=== PATIENT | female | born 1960 | race Caucasian/White ===

== ENCOUNTER → 2016-10-25 | Outpatient (CLI) | payer BC ==
[~2016-10-25] MED LIST: ASPIRIN EC81 MG PO; CELEBREX200 MG PO; CENTRUM SILVER1 TAB PO; COREG6.25 MG PO; CPAP INH; CYMBALTA30 MG PO; DRISDOL 5050000 UNIT PO; FISH OIL 1,0001 EACH PO; LEVOTHROID (S125 MCG PO; SINGULAIR10 MG PO; VITAMIN D1000 UNIT PO; ZOCOR20 MG PO
--- NOTE | ~2016-10-25 | ESTC ---
Cardiac Perfusion Imaging Demographics Patient Name ROSA Alegre Gender Female Patient Number [id number] Race Visit Number [id number] Ethnicity or Corporate ID Room Number Accession Number [id number] Height 66 inches Date of 1960 Weight 245 pounds A Interpreting Jose Miguel Mancilla Date of study 10/25/2016 Physician Supervising /WADEP Thai DOLL Technologist Wanda Diop MD Ordering Physician Thai Foster A hazardous waste technician Stress ECG Reading Thai Schaffer Nurse Ghada Hernandez Physician A RN The procedure was explained in detail to the patient. Risks, complications and alternative treatments were reviewed. Written consent was obtained. Medications Reviewed with Patient prior to Procedure. Procedure Procedure Type: Nuclear Stress Test:Exercise, Cardiolite Stress Test Procedure Start time: 10/25/2016 09:42 Indications: Shortness of breath and Arm pain. Risk Factors The patient risk factors include:obesity, former tobacco use, treated hypercholesterolemia, treated hypertension and dyslipidemia. Conclusions Impression ECG portion of exercise stress test is negative for inducible ischemia. Myocardial perfusion imaging is moderately abnormal. The images reveal a reversible defect in the mid to distal anterior wall and apical lateral consistent with ischemia in the territory of the left anterior descending artery. Overall left ventricular systolic function was normal. Calculated LVEF is 74% with hypokinetic mid to distal anterior wall. TID ratio is 1.21. This is a intermediate risk stress test. Stress Protocols Resting ECG Normal sinus rhythm. Pre-stress physical exam: Patient assessed by Dr Andre prior to testing. Stress Protocol:Exercise Peak HR:139 bpm Predicted HR: 163 bpm % of predicted HR: 85 ECG Findings No ECG changes suggestive of ischemia. Arrhythmias No rhythm abnormality. Symptoms Shortness of breath. Stress Interpretation Appropriate hemodynamic response to exercise. No significant ST-T wave changes with exercise. EKG portion is negative for ischemia by diagnostic criteria. The Hussein Treadmill score was 7 .This corresponds to a low risk stress test. Imaging Results Applied corrections - Motion correction applied High risk findings Summed scores - LV dilatation (TID) : 1.21 - Summed stress score: 13 - Summed rest score: 11 - Summed difference score: 2 Stress ejection Ejection fraction:74 % EDV :108 ml ESV :28 ml Stroke volume :80 ml LV mass :139 gr Imaging Protocols Rest Stress Isotope:Tc99m Sestamibi IV Isotope: Tc99m Sestamibi IV Isotope dose:15.6 mCi Isotope dose:46.6 mCi Date:10/25/2016 08:03 Date:10/25/2016 10:03 Technique: SPECT Technique: Gated Supine SPECT Supine Scan Time:45-60 minutes post Scan Time:45-60 minutes post injection injection Medical History Admission Data Admission date: 10/25/2016 Admission Time: 07:30 Hospital Status: Outpatient. Signatures dtt: BALDOMERO CHILDS dtd: 10/25/16 0942 Physician Self Edit
== END | disposition disaster alternative care site (69) ==
LOC: GRAD 07:30
DX: R06.00 Dyspnea, unspecified (principal); E66.9 Obesity, unspecified; E78.00 Pure hypercholesterolemia, unspecified; I10 Essential (primary) hypertension; E78.5 Hyperlipidemia, unspecified; Z87.891 Personal history of nicotine dependence; Z82.49 Family history of ischemic heart disease and other diseases of the circulatory system
CPT/HCPCS: A9500

== ENCOUNTER 2016-11-12 08:00 | Outpatient (CLI) | payer BC ==
[~2016-11-12] VITALS: Ht 167.6 cm; Wt 110.4 kg
--- NOTE | ~2016-11-12 | CATH ---
Cardiac Diagnostic Report Demographics Patient Name ROSA Alegre Gender Female Date of 1960 Age 56 year(s) Patient Number [id number] Date of Study 11/12/2016 Visit Number [id number] Room Number G63[address] [place] [id number] Ht 167.64 cm Wt 110.4 kg Referring Kentrell Maciel MD Primary Physician Physician Performing Macorralbino Secondary Physician Physician Manfred Diagnostic Marly Assisting Physician Physician Manfred Interventional Physician Delivery Professional Physician Findings and Conclusions Diagnostic Findings and Conclusion Rt dominant L Main: No significant epicardial disease LAD: No significant epicardial disease L Cx: No significant epicardial disease RCA: No significant epicardial disease Diagnostic Recommendations Risk factor modification. Procedure Description The patient was brought to the diagnostic cardiac catheterization-EP laboratory in the fasting, non-sedated state. Informed consent was obtained in the written and verbal form after the risks and benefits were explained. The patient had no further questions and agreed to proceed. The planned puncture-incision site(s) were shaved and prepped with ChloraPrep and draped in the usual sterile manner. Conscious sedation, supplemental oxygen, and pain control medications were delivered by a registered nurse under physician guidance. Surface ECG rhythm, blood pressure measurement, and pulse oximetry were monitored throughout the procedure. Arterial access. The right radial artery access site was infiltrated with lidocaine. The vessel was entered with the Seldinger technique. A sheath was advanced into the vessel and used for catheter placement. Selective left coronary angiography. A catheter was advanced into the left coronary vessel ostium under Fluoroscopic guidance. Contrast was injected by hand. Images were obtained in multiple projections. Selective right coronary angiography. A catheter was advanced into the right coronary vessel ostium under fluoroscopic guidance. Contrast was injected by hand. Images were obtained in multiple projections. Arterial artery hemostasis was achieved. The patient was transferred to a regular nursing floor via cart accompanied by a nurse. The patient left the laboratory in stable condition. Diagnostic Cath Status: Elective Procedure Procedure Type Diagnostic procedure:Angiography:, Coronary Angios Indications: Abnormal nuclear perfusion study. The procedure was explained in detail to the patient. Risks, complications and alternative treatments were reviewed. Written consent was obtained. Medications Reviewed with Patient prior to Procedure. Angiographic Findings Dominance: Right Cardiac Arteries and Lesion Findings LMCA: Normal (0% Stenosis). LAD: Normal (0% Stenosis). LCx: Normal (0% Stenosis). RCA: Normal (0% Stenosis). Procedure Data Procedure Date Date: 11/12/2016Start: 02:05 PMEnd: 02:40 PM Entry Locations - Retrograde Percutaneous access was performed through the Right Radial artery (Primary location). A 6 Fr sheath was inserted. Hemostasis was successfully obtained using an R band. Closure Comments: [place] placement. 16 ml air in band. Procedure Medications Order and Administration + + + +-------+ !Time !Medication !Dosage !Route ! + + + +-------+ !11/12/2016 02:01 PM !Fentanyl !50 mcg !I.V. ! + + + +-------11/12/2016 02:05 PM !Versed !1 mg !I.V. ! + + + +-------+ 11/12/2016 02:06 PM !Oxygen !2 l/min !NC ! + + + +-------+ 11/12/2016 02:10 PM !Radial Verapamil !2.5 mg !I.A. ! + + + +-------11/12/2016 02:10 PM !Radial Nitroglycerin !200 mcg ! ! + + + +-------11/12/2016 02:13 PM !Heparin (ACC_3) !5000 units ! ! + + + +-------+ 11/12/2016 02:35 PM !Oxygen ! !NC ! + + + +-------+ Devices Used - A5 Fr. BS JR 4 Diag. Catheterwas used for:Right coronary angiography. - A5 Fr. BS JL 3.5 Diag. Catheterwas used for:Left coronary angiography. Contrast Material - Isovue 01725 ml Fluoroscopy Time: Diagnostic: 6:30 minutes. Total: 6:30 minutes. Fluoroscopy Dose: Diagnostic: 684 mGy. Total: 684 mGy. Estimated Blood Loss: 10 ml. Medical History Performed Procedures and Imaging Results - Stress testing with SPECT MPIwas performed on 10/25/2016. Results were: Positive. Risk/Extent of ischemia was: Intermediate risk. Allergies - Other:(lisinopril, amlodipine). Risk Factors The patient risk factors include:hypertension, last creatinine: 0.8 mg/dl, creatinine clearance: 135.22 ml/min and former tobacco use. Admission Data Admission Date: 11/12/2016 Admission Time: 08:00 AM Admit Source: Other Insurance Payors: Private health insurance. Admission Medications + +------+------+ + + + + !Medication !Dosage!Times !Last !Last !Administered !Comments ! ! ! !Per !Delivery !Delivery ! ! ! ! ! !Day !Date !Time ! ! ! + +------+------+ + + + + !Aspirin ! ! ! ! !Yes ! ! !(any) ! ! ! ! ! ! ! + +------+------+ + + + + !Beta ! ! ! ! !Yes ! ! !Precious ! ! ! ! ! ! ! !(any) ! ! ! ! ! ! ! + +------+------+ + + + + !Statin ! ! ! ! !Yes ! ! !(any) ! ! ! ! ! ! ! + +------+------+ + + + + Clinical Evaluation Leading to Procedure Diagnosed on 10/25/2016 12:00 AM. - The patient's CAD presentation was assessed as: Stable angina. - The patient's anginal syndrome during the past two weeks was assessed as: Class II according to the [employer] Cardiovascular Society Classification System (CCS). Anti-anginal medications were prescribed during the past two weeks. The medication is: Beta Blockers. Hemodynamics Condition: Rest O2 Consumption: Estimated: 203.27Heart Rate: 65 bpm Pressures (mmHg) +-----+ + !Site !Pressure ! +-----+ + !AO !157/77 (110) ! +-----+ + !AO !152/71 (105) ! +-----+ + Shunts Oxygen Values O2 Capacity 172.72 O2 Consumption 203.27 Signatures dtt: MANFRED OCONNOR dtd: 11/12/16 1405 Physician Self Edit
[2016-11-12 08:39] LABS: BASOPHIL % 0.8 %; EOSINOPHIL # 0.1 K/uL (0.0-0.5); EOSINOPHIL % 2.8 %; HEMOGLOBIN 12.7 g/dL (10.0-15.0); IMMATURE GRANULOCYTE % 0.3 %; LYMPHOCYTE # 1.3 K/uL (0.8-4.0); LYMPHOCYTE % 31.5 %; MCH 28.9 pg (27.0-34.0); MCHC 33.4 gm/dL (32.0-36.5); MCV 86.4 fl (83.0-98.0); MONOCYTE # 0.4 K/uL (0.0-1.0); MONOCYTE % 10.8 %; MPV 9.8 fl (9.4-12.4); NEUTROPHIL # (ANC) 2.2 K/uL (1.8-7.8); NEUTROPHIL % 53.8 %; NRBC % 0 /100WBC (0-0.00); PLATELET COUNT 205 K/uL (150-450); RDW-CV 12.6 % (11.9-14.6)
[2016-11-12 08:56] LABS: INR - (THERAPEUTIC) 0.92 (0.92-1.07); PROTIME 9.7 SECONDS (9.8-11.4); PTT 28 SECONDS (25-32)
[2016-11-12 09:08] LABS: ALBUMIN 3.6 gm/dL (3.5-5.0); ANION GAP 8.2 (10.0-19.0); CALCIUM 8.8 mg/dL (8.5-10.5); CREATININE 0.8 mg/dL (0.5-1.1); POTASSIUM 4.2 mMol/L (3.7-5.1); TOTAL BILIRUBIN 0.4 mg/dL (0.0-1.5)
== END 2016-11-12 18:05 | disposition disaster alternative care site (69) ==
LOC: GPOC 08:00 → GPCU 08:00 → GCAT 08:00
PROVIDERS: Internal Medicine Interventional Cardiology
PROC: 4A023N7 Measurement of Cardiac Sampling and Pressure, Left Heart, Percutaneous Approach (ICD-10-PCS; principal; 2016-11-12)
PROC: B216YZZ Fluoroscopy of Right and Left Heart using Other Contrast (ICD-10-PCS; 2016-11-12)
DX: I25.119 Atherosclerotic heart disease of native coronary artery with unspecified angina pectoris (principal)
CPT/HCPCS: J1644; J2001; J2250; J3010; J7030